=== PATIENT | male | born 1975 | race Caucasian/White ===

== ENCOUNTER 2018-06-03 08:26 | Emergency (ER) | payer OTHER, SELFPAY ==
[2018-06-03 08:33] VITALS: BP 128/82; PULSE 66; RESP 14; TEMP 36.7; O2SAT 97
--- NOTE | 2018-06-03 09:06 | ED.GENADUL_ITS ---
Discharge Plan Disposition Patient Disposition: HOME Condition: Stable Discharge Details Chief Complaint: Orthopedic Clinical Impression: Contusion of right clavicle, Contusion of right chest wall, Contusion of right hip, Head injury, closed, without LOC Primary Care Provider: Rene Blanco ED Provider: Cande Begum Discharge Instructions Instructions: Head Injury (ED), Contusion in Adults (ED) Additional Instructions: Rest and apply ice to your right clavicle, chest and hip as much as possible. Alternate Tylenol and Motrin as needed and directed for pain. Limit the amount of Motrin used due to head injury and risk of bleeding. Follow-up with your primary care doctor in 1 week for reevaluation as needed. Return immediately to the emergency department any worsening or new concerning symptoms. Stand Alone Forms: Work Release Discharge Data Discharge Physician: Cande Begum Medical Decision Making 43-year-old male who presents with right clavicle, right anterior/lateral/ posterior rib pain, and right hip pain status post mechanical fall on ice prior to arrival. States he thinks he did hit his head as well but denies LOC or vomiting. Patient drove himself to the ED and easily ambulated back to the room. Vitals within normal limits. Patient appears nontoxic, and in no acute distress. He is easily ambulatory around room. No evidence of head trauma. No focal deficits. He has tenderness to palpation of the right mid clavicle and right anterior/lateral/posterior chest without evidence of trauma to chest. His abdomen is soft and nontender. His C-spine/T-spine/L-spine is nontender. No evidence of extremity deformity. Neurovascularly intact. Will obtain a right clavicle, right ribs and PA lateral chest, and right hip and pelvis x-rays. Due to history of possible head injury, will give a dose of Tylenol rather than Motrin. I do not see an indication for CT head as there was no LOC, vomiting, significant distracting injuries, intoxication, or focal deficits patient is in agreement with this plan. 1005 --x-rays reviewed with radiologist and negative. Patient feels better and feels good to go home. Patient instructed on the importance of rest, ice, Tylenol, and Motrin as needed. Pt was instructed to f/u with his primary care doctor in 1 week for reevaluation and to return here immediately if worse. HPI General Mode of arrival: ambulatory . Date/Time Provider Initiated Documentation: 06/03/18 08:44 . Limitations to Documentation: no limitations . Information obtained by: patient . HPI Narrative: Patient is a 43-year-old male who presents with right clavicle and right rib pain after slipping and falling on ice prior to arrival. Patient states he was walking in a parking lot when he slipped and hit his right clavicle and right side of chest and ribs on the ground. States he also thinks he hit the right side of his head and right hip. Patient states he drove himself here to the hospital and has been able to ambulate easily. He denies loss of consciousness, vomiting, headache, neck pain, right upper extremity, left upper extremity, or bilateral lower extremity pain, abdominal pain, or back pain. Patient has not taken anything for pain. Past medical history: None Surgical history: Hernia repair, deviated septum repair Social history: Denies tobacco, alcohol or drugs Medications: None Allergies: None [facility] Related Data Allergies Allergy/AdvReac Type Severity Reaction Status Date / Time No Known Allergies Allergy Unverified 05/02/14 09:49 General Stated Complaint: Orthopedic SUNDAY: 4 Review of Systems Review of Systems All systems reviewed & are unremarkable except as noted in HPI and below Constitutional Denies chills, Denies excessive sweating, Denies fatigue, Denies fever(s), Denies weakness and Denies weight loss Eyes Reports system reviewed and no additional complaints, except as docu and Denies blurry vision ENT Denies vertigo, Denies dizziness, Denies otalgia, Denies nasal congestion, Denies sore throat and Denies throat swelling Cardiovascular Denies chest pain, Denies syncope, Denies rapid heart rate and Denies dyspnea Respiratory Denies dyspnea Gastrointestinal Denies abdominal pain, Denies diarrhea and Denies vomiting Genitourinary Denies hematuria, Denies dysuria and Denies flank pain Musculoskeletal Denies back pain and Denies joint swelling Integumentary/Breasts Denies lesions and Denies rash Neurologic Denies behavioral changes, Denies confusion, Denies vertigo, Denies dizziness, Denies syncope and Denies weakness Psychiatric Denies behavioral changes, Denies confusion and Denies depression Endocrine Denies excessive sweating and Denies fatigue Hematologic/Lymphatic Denies easy bruising and Denies lymphadenopathy Allergic/Immunologic Denies throat swelling [facility] Social History Smoking/Tobacco Use Status: Current every day Exam Const General: cooperative and healthy appearing Orientation: alert and awake [facility] Head: normal to inspection, no palpable skull fracture, normocephalic, atraumatic, no abrasions, no Mcelroy's sign and no hematomas Ears: hearing grossly normal bilaterally, external ears normal and TM's normal bilaterally General nose exam: external nose normal Face and sinus: normal facial exam Mouth: oral mucosae normal Teeth and gingiva: dentition normal Throat: posterior oropharynx normal Eyes General: appearance normal, both eyes and all related structures Eyelids: eyelids normal Pupils: PERRL EOM: EOM intact bilaterally Neck Neck: normal visual inspection Lymphatic: no lymphadenopathy noted Chest Chest: normal inspection of the chest and tenderness (To palpation of right anterior, lateral and posterior chest. No evidence of trauma. No crepitus.) clavicle on the right (Tender to palpation in mid clavicle. No deformity. ) Resp Effort & Inspection: normal respiratory effort and able to speak in complete sentences Auscultation: clear to auscultation bilaterally Cardio Rate: regular rate Rhythm: regular rhythm GI Inspection: normal to inspection and no abdominal wall ecchymosis Palpation: soft, not firm, no guarding, no hepatosplenomegaly, no masses and nontender Auscultation: normal bowel sounds Back/Spine/Pelvis Back: no CVA tenderness Thoracic/Lumbar Spine: thoracic and lumbar spine normal to inspection, No thoracic spinal tenderness and No lumbar spinal tenderness Pelvis: no pain with anterior-posterior compression Sacrum: no tenderness Skin General skin exam: no rashes or lesions noted Neuro General: alert, awake and oriented x3 Cranial Nerves: CN's II-XI intact bilaterally Cognition: normal cognition Speech: speech normal Gait: normal gait Motor: muscle tone normal throughout and strength 5/5 throughout Sensory Exam: no sensory deficits noted Extrem General: normal to inspection, full ROM and normal capillary refill Right upper extremity: normal to inspection, full ROM and shoulder/upper arm Details: normal to inspection; no deformity Left upper extremity: normal to inspection and full ROM Right lower extremity: hip/thigh Details: tenderness Location: of the hip Location: laterally; ROM normal, no abrasions, no lacerations, no ecchymosis, no crepitus and no deformity Left lower extremity: normal to inspection and full ROM Psych Appearance: grossly normal Mental Status: mental status grossly normal Speech and Movement: speech and movement normal Affect: normal affect Thought Process: normal Course Vital Signs Temperature 98.1 F 06/03/18 08:33 Pulse 66 06/03/18 08:33 Respiratory Rate 14 06/03/18 08:33 Blood Pressure 128/82 06/03/18 08:33 Pulse Oximetry 97 06/03/18 08:33 Temperature 98.1 F 06/03/18 08:33 Temperature Source Temporal Artery Scan 06/03/18 08:33 Pulse 66 06/03/18 08:33 Respiratory Rate 14 06/03/18 08:33 Respiratory Effort 06/03/18 08:37 Blood Pressure 128/82 06/03/18 08:33 Blood Pressure Position Sitting 06/03/18 08:33 Pulse Oximetry 97 06/03/18 08:33 Oxygen Delivery Method Room Air 06/03/18 08:33 Oxygen Flow Rate 0 06/03/18 08:33 Pain Level 5 06/03/18 08:33
[2018-06-03] MEDS: Acetaminophen 325 MG TAB 650 MG PO (09:11)
--- NOTE | 2018-06-03 09:25 | DI.RAD_ITS ---
SYMPTOM/DIAGNOSIS: FELL, PAIN, ? FX RIGHT CLAVICLE: Two views. No acute fracture or dislocation is identified. Mild hypertrophic changes are seen at the acromioclavicular joint. The soft tissues are unremarkable. IMPRESSION: No evidence of a right clavicular fracture. RIGHT RIBS AND PA AND LATERAL CHEST: No priors for comparison. Heart size and pulmonary vasculature are within normal limits. The lungs are clear. No evidence of a rib fracture is seen. Degenerative changes are seen in the spine. IMPRESSION: No acute pulmonary process. No evidence of a right rib fracture. RIGHT HIP: Three views. No acute fracture or dislocation is seen. The soft tissues are unremarkable. Sacroiliac joints and symphysis pubis are intact. IMPRESSION: No acute fracture or dislocation.
[2018-06-03 10:22] VITALS: BP 117/67; PULSE 59; RESP 14
== END 2018-06-03 10:20 | disposition home or self-care (01) ==
PROVIDERS: Emergency Provider Physician Assistant; PCP Family Medicine
DX: S40.011A Contusion of right shoulder, initial encounter (principal); S70.01XA Contusion of right hip, initial encounter; S09.90XA Unspecified injury of head, initial encounter; S20.211A Contusion of right front wall of thorax, initial encounter; W00.0XXA Fall on same level due to ice and snow, initial encounter
CPT/HCPCS: 99284; 71046; 71100; 73000; 73502

== ENCOUNTER 2024-10-26 18:05 | Emergency (ER) | payer BC, SELFPAY ==
[2024-10-26] VITALS (43 sets, daily range): BP systolic 135–193; BP diastolic 77–101; PULSE 63–98; RESP 9–22; O2SAT 88–99
--- NOTE | 2024-10-26 18:00 | RT.EKG_ITS ---
APPROVED REPORT Exam: Resting ECG Reason for Exam: Chest Pain Patient Location: E HR:99 bpm ECG Measurements Heart Rate 99 AXIS MI 178 P 68 QRSd 94 QRS 69 QT 341 T 49 QTc 437 Conclusion Sinus rhythm...normal P axis, V-rate 60- 99 Physician: no stemi
[2024-10-26] MEDS: Aspirin 81 MG CHEW 324 MG CH (18:51)
[2024-10-26] MEDS: nitroGLYcerin 0.4 MG TAB SL (18:51)
[2024-10-26 18:52] LABS: Abs Immature Grans 0.02 10^3/uL (0.0-0.06); Absolute Basophil Count 0.03 10^3/uL (0.0-0.2); Absolute Eosinophil Count 0.11 10^3/uL (0.0-0.7); Absolute Lymphocyte Count 1.93 10^3/uL (1.2-3.4); Absolute Monocyte Count 0.54 10^3/uL (0.1-0.8); Absolute Neutrophil Count 4.28 10^3/uL (1.2-6.7); Basophils % 0.4 %; Eosinophils % 1.6 %; HCT 48.6 % (40.0-50.0); HGB 16.4 g/dL (13.5-17.5); Immature Grans % 0.3 %; Lymphocytes % 27.9 %; MCH 28.6 pg (27.0-33.0); MCHC 33.7 % (32.0-36.0); MCV 85 fL (80-95); MPV 10.3 fL (8.0-11.0); Monocytes % 7.8 %; Platelet Count 209 10^3/uL (130-400); RBC 5.74 10^6/uL (4.36-5.78); RDW 12.8 % (11.8-14.1); RDW-SD 39.2 fL; WBC 6.91 10^3/uL (4.4-10.8)
[2024-10-26] MEDS: Normal Saline 500 ML IV (19:05)
[2024-10-26 19:06] LABS: INR 1.1 (0.9-1.1); PTT Activated 25.7 sec (20.6-30.2); Prothrombin Time 10.6 sec (9.1-11.1)
[2024-10-26 19:21] LABS: ALT 71 U/L (16-63); AST 40 U/L (15-37); Albumin 4.2 g/dL (3.4-5.0); Alkaline Phosphatase 78 U/L (46-116); BUN 17 mg/dL (7-18); Bilirubin, Total 0.9 mg/dL (0.2-1.0); Calcium 9.8 mg/dL (8.5-10.1); Chloride 101 mmol/L (98-107); Estimated GFR 91.69 (mL/min/1.73m2); Glucose 106 mg/dL (74-106); Lipase 46 U/L (<78); Potassium 3.7 mmol/L (3.5-5.1); Sodium 137 mmol/L (136-145); Total Protein 7.8 g/dL (6.4-8.2); Troponin I 7 ng/L (<or=76)
[2024-10-26] MEDS: Lidocaine 2% Viscous 15 ML CUP (19:27)
[2024-10-26] MEDS: Mylanta Suspension 30 ML CUP (19:27)
[2024-10-26 19:37] LABS: D-Dimer 197 ng/mlFEU (<500)
[2024-10-26 19:40] LABS: NT-proBNP 5 pg/mL (<300)
--- NOTE | 2024-10-26 20:00 | DI.RAD_ITS ---
Exam(s) XR CHEST 2V PA LATERAL EXAM: XR CHEST 2V PA LATERAL CLINICAL HISTORY: left chest pain TECHNIQUE: 2D digital imaging was performed. Two views. COMPARISON: CR XR ribs RT w PA lat chest from 06/03/2018 FINDINGS: HEART: Normal size. Aorta: Not dilated. PULMONARY VASCULATURE: Normal. MEDIASTINUM: Unremarkable. LUNGS: Clear. PLEURAL SPACE: No pleural effusion or pneumothorax. BONE:Unremarkable for age. SOFT TISSUES: Unremarkable. IMPRESSION: No acute abnormality. DATA REPOSITORY: RADIATION DOSE DELIVERED:
[2024-10-26 20:15] LABS: Troponin I 5 ng/L (<or=76)
[2024-10-26 20:23] LABS: Bilirubin Negative (Negative); Blood Negative (Negative); Clarity Clear (Clear); Glucose Negative (Negative); Ketones Negative (Negative); Leukocyte Esterase Negative (Negative); Nitrite Negative (Negative); Urobilinogen 0.2 mg/dL (Up to 0.2); pH 5.5 (5-8)
--- NOTE | 2024-10-26 20:36 | ED.GENADUL_ITS ---
Discharge Plan Disposition Patient Disposition: Home Condition: Good Discharge Details Clinical Impression: Chest discomfort Primary Care Provider: Unknown,Unknown ED Provider: Fawad Cordova Home Meds and New Rx's Prescriptions: New pantoprazole [Protonix] 40 mg tablet,delayed release (DR/EC) 40 mg PO DAILY Qty: 60 0RF Discharge Instructions Instructions: Chest Pain, Adult ED Additional Instructions: At this time your workup has returned reassuring. Thankfully there is no evidence to suggest heart attack, blood clot, popped lung, or other significant life-threatening abnormality. I am concerned that some of your symptoms may be secondary to spasm of your esophagus. Will be starting you on an antiacid medication called Protonix. Please take this as prescribed. Please follow-up closely with your primary care provider at the [facility] to schedule an outpatient EGD, as well as potential outpatient nonemergent stress test. If you notice any worsening of your symptoms, or any new symptoms such as vomiting, diarrhea, fever, chills, shortness of breath, chest pain, numbness, weakness, or fainting , please return immediately to the emergency department for reevaluation. Please follow up with your primary care provider as soon as possible for reassessment and reevaluation. As always, it was a pleasure participating in your medical care today. Referrals: [facility] [Outside] [facility] General Date/Time Provider Initiated Documentation: 10/26/24 18:10 . HPI Narrative: This is a 49-year-old male with a past medical history of borderline diabetes, an old history of tobacco abuse in the past, who presents today for evaluation of chest discomfort. Patient is states that over the last 6 years he has had intermittent episodes of mild left-sided chest discomfort that seem to come and go occasionally. They are not related to exertion. It is usually achy in nature. However this evening about an hour prior to arrival he developed the chest achiness which was a bit more significant than normal but in conjunct ion with this he also felt that his heart rate notably increased. It occurred while he was making dinner. He felt there was about a 10 pound weight on his chest. As he walked around earlier today, and tonight on the way to the ED, he did not note any change from the exertion. This did not worsen his symptoms. He denies any tearing or ripping sensation. He denies any neck or arm pain. He denies any syncope or pleuritic chest pain. Denies PE risk factors such as recent long car rides, immobilization, recent surgery, prior history of DVT or PE, family history of PE or DVT, morbid obesity, exogenous estrogen and smoking, hemoptysis, history of cancer. No other complaints at this time. Related Data Home Medications ?Medication ?Instructions ?Recorded ?Confirmed pantoprazole 40 mg tablet,delayed 40 mg PO DAILY #60 tabs 10/26/24 release (Protonix) Previous Rx's ?Medication ?Instructions ?Recorded pantoprazole 40 mg tablet,delayed 40 mg PO DAILY #60 tabs 10/26/24 release (Protonix) Allergies Allergy/AdvReac Type Severity Reaction Status Date / Time No Known Allergies Allergy Unverified 10/26/24 18:17 General Stated Complaint: Chest Pain SUNDAY: 3 Exam Narrative Exam Narrative: 1.Const: Well-nourished, Well-developed, appearing stated age 2.Eyes: PERRL, no conjunctival injection, and symmetrical lids. 3.ENT: Atraumatic external nose and ears. Moist MM. Neck: Symmetric, trachea midline, No thyromegaly. 4.CVS: +S1/S2, Peripheral pulses 2+ and equal in all extremities. Brisk capillary refill in all extremities. 5.RESP: Unlabored respiratory effort. Clear to auscultation bilaterally. No wheezes rales or rhonchi 6.GI: Soft, Nontender/Nondistended, No hepatosplenomegaly. No guarding or rebound. 7.MSK: Normocephalic/Atraumatic, Extremities w/o deformity or ttp No cyanosis or clubbing, Normal movement of all extremities 8.Skin: Warm, Dry. No rashes or lesions. 9.Neuro: clinical social work aide II-XII grossly intact. Sensation grossly intact, no focal neurologic deficits. 10.Psych: (AAO) x3. Appropriate mood and affect Course Vital Signs Vital signs: Vital Signs Pulse 98 H 10/26/24 18:10 Respiratory Rate 15 10/26/24 18:10 Blood Pressure 193/101 H 10/26/24 18:10 Pulse Oximetry 98 10/26/24 18:10 Pulse 70 10/26/24 20:29 Pulse 70 10/26/24 20:29 Respiratory Rate 22 10/26/24 20:29 Respiratory Effort Normal, Non-Labored 10/26/24 18:34 Respiratory Depth Normal 10/26/24 18:34 Respiratory Pattern Normal 10/26/24 18:34 Blood Pressure 156/88 H 10/26/24 20:29 Blood Pressure Mean 112 10/26/24 20:29 Blood Pressure Position Sitting 10/26/24 18:10 Pulse Oximetry 92 10/26/24 20:29 Oxygen Delivery Method Room Air 10/26/24 18:10 Oxygen Flow Rate 0 10/26/24 18:10 Pain Level 6 10/26/24 18:34 Lab/Test Results Lab/Test Results: Laboratory Tests Range/Units 10/26/24 10/26/24 18:44 19:47 WBC (4.4-10.8) 10^3/uL 6.91 RBC (4.36-5.78) 10^6/uL 5.74 Hgb (13.5-17.5) g/dL 16.4 Hct (40.0-50.0) % 48.6 MCV (80-95) fL 85 MCH (27.0-33.0) pg 28.6 MCHC (32.0-36.0) % 33.7 RDW (11.8-14.1) % 12.8 Plt Count (130-400) 10^3/uL 209 MPV (8.0-11.0) fL 10.3 Immature Gran % % 0.3 Neutrophils % % 62.0 Lymphocytes % % 27.9 Monocytes % % 7.8 Eosinophils % % 1.6 Basophils % % 0.4 Nucleated RBC % (0.0-0.3) % 0.0 Absolute Neutrophils (1.2-6.7) 10^3/uL 4.28 Absolute Lymphocytes (1.2-3.4) 10^3/uL 1.93 Absolute Monocytes (0.1-0.8) 10^3/uL 0.54 Absolute Eosinophils (0.0-0.7) 10^3/uL 0.11 Absolute Basophils (0.0-0.2) 10^3/uL 0.03 PT (9.1-11.1) sec 10.6 INR (0.9-1.1) 1.1 APTT (20.6-30.2) sec 25.7 D-Dimer (<500) ng/mlFEU 197 Sodium (136-145) mmol/L 137 Potassium (3.5-5.1) mmol/L 3.7 Chloride (98-107) mmol/L 101 Carbon Dioxide (21.0-32.0) mmol/L 24.0 Anion Gap (3-11) mmol/L 12.0 H BUN (7-18) mg/dL 17 Creatinine (0.70-1.30) mg/dL 1.0 Est GFR (CKD-EPI 2020) (mL/min/1.73m2) 91.69 Glucose (74-106) mg/dL 106 Calcium (8.5-10.1) mg/dL 9.8 Total Bilirubin (0.2-1.0) mg/dL 0.9 AST (15-37) U/L 40 H ALT (16-63) U/L 71 H Alkaline Phosphatase (46-116) U/L 78 Troponin I (<or=76) ng/L 7 5 NT-Pro-B Natriuret Pep (<300) pg/mL 5 Total Protein (6.4-8.2) g/dL 7.8 Albumin (3.4-5.0) g/dL 4.2 Lipase (<78) U/L 46 Medical Decision Making This is a 49-year-old male with a past medical history of borderline diabetes, an old history of tobacco abuse in the past, who presents today for evaluation of chest discomfort. Patient is states that over the last 6 years he has had intermittent episodes of mild left-sided chest discomfort that seem to come and go occasionally. They are not related to exertion. It is usually achy in nature. However this evening about an hour prior to arrival he developed the chest achiness which was a bit more significant than normal but in conjunction with this he also felt that his heart rate notably increased. It occurred while he was making dinner. He felt there was about a 10 pound weight on his chest. As he walked around earlier today, and tonight on the way to the ED, he did not note any change from the exertion. This did not worsen his symptoms. He denies any tearing or ripping sensation. He denies any neck or arm pain. He denies any syncope or pleuritic chest pain. Denies PE risk factors such as recent long car rides, immobilization, recent surgery, prior history of DVT or PE, family history of PE or DVT, morbid obesity, exogenous estrogen and smoking, hemoptysis, history of cancer. No other complaints at this time. Exam demonstrates well-appearing male who appears quite concerned at this moment. Blood pressure is high in the 190s over 101 diastolic. Heart rate is in the mid to high 90s. He has mild tachypnea, but no hypoxemia. Pulses are symmetric. Patient has had multiple previous workups for chest discomfort like this at [facility] over the past few years. They have been relatively unremarkable in the past. Differential is broad but includes ACS or anginal component, PE is less likely, dissection is even more less likely. Pneumonia is of concern but would not seem characteristic with a sudden onset. Esophageal spasm, or GERD may certainly be a component of his symptomatology. We will evaluate for these concerning etiologies, monitor closely and reassess. We will give 324 aspirin, as well as sublingual nitroglycerin. 8 PM Patient had no change or improvement with the nitroglycerin. Patient was then given a GI cocktail and had near complete resolution of his symptomatology. Pending workup. 8:41 PM Laboratory workup shows no white count bandemia or left shift. D-dimer normal. No suggestion of PE. Electrolytes normal, renal function stable. Troponins are notably benign. Lipase normal. Patient remains pain-free after GI cocktail. Pending chest x-ray results. 9:41 PM Chest x-ray has returned negative for acute process. Patient continues to be feel pain-free. He feels well and at baseline. Serial troponins are normal, D- dimer normal, symptomatology appears clinically inconsistent with dissection, ACS, unstable angina, pneumothorax or life-threatening etiology. With the near complete resolution of his symptomatology with GI cocktail, I do have a high clinical suspicion that gastric irritation, esophageal spasm, or mild esophagitis is a main podopediatrician of his symptomatology, especially with the chronicity of his symptoms. We will start the patient on Protonix, recommend Pepto-Bismol or Maalox use if symptoms recur. However also recommend prompt return if symptoms are persistent despite this type of therapy. I do feel given the patient's age and risk factors in general even though he has a low heart score, he would be a good candidate for a nonemergent outpatient stress test through the [place]. Additionally will recommend nonemergent outpatient EGD testing. Discussed red flags for which to return. I have extensively reviewed the treatment plan and discharge instructions with the patient and their family. I have addressed all patient concerns at this time. The patient and family was made aware of what symptoms to monitor for that would warrant a return to the emergency department. Discussed the plan with the patient and family, they demonstrate verbal understanding and agreement with our assessment and plan at this time. The documentation in this chart was dictated using [employer] dictation software. Please excuse any dictation errors. FINDINGS: Lungs: Unremarkable. No consolidation. Pleural spaces: Unremarkable. No pleural effusion. No pneumothorax. Heart/Mediastinum: Unremarkable. No cardiomegaly. Bones/joints: Unremarkable. IMPRESSION: No acute findings. Thank you for allowing us to participate in the care of your patient. Dictated and Authenticated by: Juan David Das MD 10/26/2024 8:51 PM Eastern Time ([place] & [place]) Quality:SDOH Health Related Social Needs: No Data to Display PFSH All Active Problems (Updated 10/26/24 @ 21:35 by Fawad Cordova DO) Chest discomfort (Acute) Social History Smoking/Tobacco Use Status: Former Tobacco Use Smoking risk assessment performed?: Yes Alcohol Intake: current Alcohol Intake frequency: 3 or more drinks per day Alcohol type: beer Drug use: Never Substance use type: does not use Do you feel safe in your relationship?: Yes PAWSS Have you Been Recently Intoxicated or Drunk Within the Last 30 days?: No Have you Ever Experienced Previous Episodes of Alcohol Withdrawal?: No Have you ever Experienced Withdrawal Seizures?: No Have you ever Experienced Delirium Tremens(DT)s?: No Have you ever undergone Alcohol Rehabilitation Treatment (i.e, inpt ot outpatient treatment programs)?: No Have you ever Experienced Blackouts?: No Have you ever Combined Alcohol with other Downers within the last 90 days?: No Have you ever Combined Alcohol with any other Substance of Abuse during the last 90 days?: No Result: 0
--- NOTE | 2024-10-26 20:52 | DI.VRAD_ITS ---
PROCEDURE INFORMATION: Exam: XR Chest Exam date and time: 10/26/2024 8:19 PM Age: 49 years old Clinical indication: Pain; Left-sided TECHNIQUE: Imaging protocol: Radiologic exam of the chest. Views: 2 views. COMPARISON: CR XR ribs RT w PA lat chest 06/03/2018 9:12 AM FINDINGS: Lungs: Unremarkable. No consolidation. Pleural spaces: Unremarkable. No pleural effusion. No pneumothorax. Heart/Mediastinum: Unremarkable. No cardiomegaly. Bones/joints: Unremarkable. IMPRESSION: No acute findings. Dictated and Authenticated by: Juan David Das MD. Orderin Tasha Celestin MD
[2024-10-26] MEDS: Pantoprazole 40 MG VIAL IVP (22:04)
== END 2024-10-26 22:06 | disposition home or self-care (01) ==
PROVIDERS: Emergency Provider Student in an Organized Health Care Education/Training Program
DX: R07.89 Other chest pain (principal); Z87.891 Personal history of nicotine dependence
CPT/HCPCS: 80053; 83690; 93005; 99284; 71046; 81003; 83880; 84484; 85025; 85379; 85610; 85730; 93010; J2470